=== PATIENT | male | born 1965 | race Caucasian/White ===

== ENCOUNTER 2018-08-16 21:02 | Day surgery (SDC) ==
[2018-08-16] MEDS ORDERED: ZOFRAN IV ONE (21:41)
[2018-08-16] MEDS ORDERED: NS 1,000 ML IV ONE (21:41)
[2018-08-16] MEDS ORDERED: DILAUDID IV ONE ×2 (21:41→22:27)
[2018-08-16 23:04] LABS: INR 0.87; PROTIME 12.5 Seconds (11.0-16.0)
[2018-08-16 23:05] LABS: PTT 29.5 Seconds (22.3-41.8)
[2018-08-16 23:17] LABS: BASO# 0.02 X1000 (0.0-0.2); BASO% 0.2 % (0.0-0.8); EOS% 0.8 % (0.0-10.0); HEMATOCRIT 46.5 % (42.0-52.0); HEMOGLOBIN 16.5 g/dL (14.0-18.0); IMM GRAN# 0.05 X1000 (0.0-0.04); IMM GRAN% 0.4 % (0.0-0.5); LYMPH# 0.94 X1000 (1.2-3.4); LYMPH% 7.1 % (20.5-51.1); MCH 30.5 PG (27-31); MCHC 35.5 g/dL (33-37); MONO# 0.98 X1000 (0.11-0.59); MONO% 7.4 % (1.7-9.3); MPV 9.5 FL (7.4-10.4); NEUT% 84.1 % (42.2-75.2); PLT 222 X1000 (130-400); RBC 5.41 XMIL (4.7-6.1); RDW 13.9 % (11.5-14.5); WBC 13.29 X1000 (4.8-10.8)
[2018-08-16 23:20] LABS: AGAP 13; BUN 18 mg/dL (8-22); CALCIUM 8.7 mg/dL (8.8-10.2); CHLORIDE 104 mmol/L (98-107); COSMO 289; ESTIMATED GFR > 60; GLUCOSE 176 mg/dL (70-104); POTASSIUM 4.2 mmol/L (3.5-5.1); SODIUM 142 mmol/L (136-145); TCO2 25 mmol/L (25-35)
[2018-08-17] MEDS: 1/2 NS + KCL 20 MEQ 1,000 ML IV SCH ×3 (01:29→22:50)
--- NOTE | 2018-08-17 05:45 | Diag Imaging Result Doc PS360 ---
EXAM: CT PELVIS W/CONTRAST HISTORY: hernia TECHNIQUE: CT pelvis with intravenous contrast COMPARISON: None. FINDINGS: There is a large right inguinal hernia containing multiple small bowel loops. Several small bowel loops are overly distended. The small bowel loops proximal to those within the hernia are dilated as well. The urinary bladder is moderately distended and is normal. The prostate is not enlarged. There are scattered phleboliths. Bilateral pars defect to the L5 vertebra with subluxation. IMPRESSION: Small bowel obstruction secondary to bowel within a right inguinal hernia. A preliminary report was given at 11:37 PM on 08/16/2018 This exam was performed using automated exposure control, adjustment of mA or kV according to patient size, and/or use of iterative reconstruction technique. Electronically signed by Mateo Ybarra 08/17/2018 5:43 AM
[2018-08-17] MEDS ORDERED: MORPHINE IV PRN (06:01)
--- NOTE | 2018-08-17 06:21 | HISTORY AND PHYSICAL ---
ADMITTING DIAGNOSIS: Right inguinal hernia. HISTORY OF PRESENT ILLNESS: A 53-year-old gentleman who presented to the emergency department yesterday evening late with pain in his right groin. He had this noted after working. 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 He was seen in the emergency department, had a CT scan that has confirmed a hernia. The ER physician was able to reduce it. PAST MEDICAL HISTORY: History of TIA. PAST SURGICAL HISTORY: None. SOCIAL HISTORY: Current smoker. ALLERGIES: None. HOME MEDICATIONS: Currently being compiled. FAMILY HISTORY: Reviewed with patient, noncontributory. REVIEW OF SYSTEMS: A full 10-point review of systems obtained, negative as specified in HPI. PHYSICAL EXAMINATION: VITAL SIGNS: Patient is currently afebrile. His vital signs stable. GENERAL: No acute distress. Alert and oriented male, looks stated age. HEENT: Normocephalic, atraumatic. Pupils equal, round, reactive to light. Mucous membranes moist. Oropharynx benign. NECK: Supple. Trachea midline. CARDIOVASCULAR: Regular rate and rhythm. LUNGS: Grossly clear. ABDOMEN: Soft, nondistended. Inguinal hernia noted on the right side that has already been reduced. Left side, I do not feel an inguinal hernia. EXTREMITIES: Moves all extremities. NEUROLOGIC: Grossly intact. SKIN: No signs of jaundice. VASCULAR: All extremities perfused. LABORATORY: White blood count 13, hematocrit 46, platelet count 222,000. INR 0.87. Remainder of labs reviewed. CT scan independently reviewed and radiology report reviewed. ASSESSMENT AND PLAN: A 53-year-old gentleman with right inguinal hernia. Right inguinal hernia. At this time, it has been reduced but we will plan on surgical intervention today. Discussed with him the risks, benefits, alternatives. Risks including, but not limited to bleeding, infection, risk of anesthesia, risk of injuring nerves causing chronic pain, risk of testicular loss, risk of recurrence, risk of mesh complications discussed. He voiced understanding wished to proceed with procedure. Again, we will try to do this today. cc: Eber Aviles MD
[2018-08-17] MEDS ORDERED: KEFZOL 2 GM/D5W 2 GM/50 ML IVPB ONE (07:11)
[2018-08-17] MEDS ORDERED: KEFZOL 2 GM/D5W 2 GM/50 ML IVPB IV ONE (10:00)
[2018-08-17] MEDS ORDERED: DIPRIVAN 1% ONE (10:30)
[2018-08-17] MEDS ORDERED: QUELICIN (DOSE) ONE (10:35)
[2018-08-17] MEDS ORDERED: LTA KIT ONE (10:39)
[2018-08-17] MEDS ORDERED: FENTANYL ONE (11:00)
[2018-08-17] MEDS ORDERED: TORADOL ONE (11:03)
[2018-08-17] MEDS ORDERED: ZEMURON ONE (11:08)
[2018-08-17] MEDS ORDERED: MARCAINE 0.25% PF/EPI 1:200,000 ONE (11:15)
[2018-08-17] MEDS ORDERED: ZOFRAN ONE (11:17)
[2018-08-17] MEDS ORDERED: ROBINUL ONE ×2 (11:21→12:03)
[2018-08-17] MEDS ORDERED: NEOSTIGMINE ONE (12:03)
--- NOTE | 2018-08-17 17:54 | OPERATIVE NOTE ---
PROCEDURE DATE: 08/17/2018 PREOPERATIVE DIAGNOSIS: Right inguinal hernia. POSTOPERATIVE DIAGNOSIS: Large incarcerated indirect inguinal hernia on the right. PROCEDURE: Open repair of right incarcerated indirect inguinal hernia with mesh (Bard mesh PerFix mesh). SURGEON: Eber Aviles MD. RECRUITER: None. ANESTHESIA: General endotracheal. INTRAOPERATIVE FINDINGS: As dictated. COMPLICATIONS: None at the time of this dictation. EBL: 15 mL. SPECIMENS: Cord lipoma. BRIEF HISTORY: A 53-year-old gentleman came in with a bowel obstruction from inguinal hernia. It was reduced in the emergency department. We watched him overnight. He wanted it repaired. The risks, benefits, and alternatives were discussed. Risks include but not limited to bleeding, infection, risk of anesthesia, risk of recurrence, risk of mesh complications, risk of testicular loss and chronic pain discussed. He voiced understanding wished to proceed with procedure. DESCRIPTION OF PROCEDURE: After informed consent was obtained, the patient brought to the operative theater, transferred to the operative table, placed in the supine position. General endotracheal anesthesia was then performed without complication. A formal time-out was then performed confirming patient, date, and procedure. All in agreement. At that time, attention was given to the right lower quadrant. We marked the landmarks of the anterior/ superior iliac spine and pubic tubercle. I was able to feel the external ring. We made an incision connecting these 2 points, carried down through the subcutaneous tissue to the external oblique aponeurosis. We incised the external oblique along its fibers to enter into the inguinal canal. There was a large hernia. The floor of the inguinal canal was very weak. We isolated a large redundant hernia sac. I tried to mobilize it as best I could but could not mobilize it fully. I was able to come across it while preserving the vas deferens as best we could. I felt as though more dissection was going to injure the pampiniform plexus. It should also be noted they noted and found the ilioinguinal nerve and sacrificed it. We then isolated one end of the hernia sac, ligated it with a high ligation. We then placed a plug into the internal ring. It was still sufficient size to accommodate the cord structures. We secured it in place with Prolene. We then placed a patch on the inguinal floor, recreating the inguinal floor, sutured it into the pubic tubercle and the shelving edge and the transversalis fascia and we recreated the internal ring. We secured the plug to this also. Once we had done this we confirmed that the testicle was still down in the scrotum. We closed the external oblique aponeurosis and then closed the skin. Both testicles were noted in the scrotum at the completion the case. cc: Eber Aviles MD
[2018-08-17] MEDS: NORCO-10 PO PRN (23:58)
[2018-08-18] MEDS: 1/2 NS + KCL 20 MEQ 1,000 ML IV SCH ×2 (01:00→07:23)
[2018-08-18] MEDS: NORCO-10 PO PRN ×3 (04:11→13:40)
--- NOTE | 2018-08-18 07:02 | GENERAL SURGERY PROGRESS NOTE ---
DATE: 08/18/2018 SUBJECTIVE: The patient seems to be doing well. He has been hemodynamically stable. He is having a little bit of pain in his incision, but overall says he is feeling better. He has had a low-grade fever of 100.2, but I think this is somewhat related to atelectasis. At this point, he tolerated his clear liquid diet. Will see how he does with a regular diet. He seems to be doing okay. Will send him home. If not, will monitor him because he did have a bowel obstruction going into this. cc: Eber Aviles MD
[2018-08-18 08:53] VITALS: BP 141/77
== END 2018-08-18 15:10 | disposition home or self-care (01) ==
LOC: ED 21:02 → OPS 08-17 00:12 → 4N 08-17 00:12 → OPS 08-18 15:10
PROVIDERS: ATTEND Surgery
CPT/HCPCS: 72193; 80048; 83605; 85025; 85610; 85730; 88304; A9270; J0330; J0690; J1170; J1885; J2270; J2405; J3010; J3480; J7030; Q9967